=== PATIENT | male | born 1945 | race African-American/Black ===

== ENCOUNTER 2019-02-12 16:05 | Inpatient (IN) | payer MEDICARE, MEDICAID ==
[~2019-02-12] VITALS: Ht 180.3 cm; Wt 90.8 kg
[2019-02-12] MEDS ORDERED: SODIUM CHLORIDE 0.9% 500 ML IV ONE (16:30)
[2019-02-12 16:52] LABS: BASOPHILS % 0.6 % (0.0-2.0); EOSINOPHILS % 1.3 % (0.0-5.0); HEMATOCRIT. 40.1 % (42.0-52.0); HEMOGLOBIN. 13.3 g/dL (14.0-18.0); LYMPHOCYTES % 18.8 % (20.0-50.0); MEAN CORPUSCULAR HEMOGLOBIN 27.8 pg (28.0-32.0); MEAN CORPUSCULAR VOLUME 83.7 fL (80.0-94.0); MEAN PLATELET VOLUME 7.9 fl (7.4-10.4); MONOCYTES % 4.5 % (2.0-8.0); NEUTROPHILS % 74.8 % (40.0-76.0); PLATELET 202 x1000/uL (130-400); RED BLOOD CELL COUNT 4.79 mill/uL (4.7-6.1); RED CELL DISTRIBUTION WIDTH 13.8 % (11.6-14.6)
[2019-02-12 16:58] LABS: CHLORIDE 108 mEq/L (98-107)
[2019-02-12 16:59] LABS: BG BASE EXCESS 1.2 mmol/L (-2.0-2.0); BG CARBOXYHEMOGLOBIN 0.3 % (0.5-1.5); BG DEOXYHEMOGLOBIN 4.1 % (0.0-5.0); BG HCO3 ACT 25.7 mmol/L (22.0-26.0); BG METHEMOGLOBIN 0.4 % (0.0-1.5); BG OXYGEN SATURATION 95.9 % (92.0-98.5); BG OXYHEMOGLOBIN 95.2 % (94.0-97.0); BG PCO2 40.4 mmHg (35.0-45.0); BG PH 7.422 (7.350-7.450); BG PO2 81.2 mmHg (75.0-100.0); BG SAMPLE SITE RIGHT RADIAL; BG TOTAL HEMOGLOBIN 14.1 g/dL (12.0-18.0); BG VENT MODE ROOM AIR
[2019-02-12 17:03] LABS: ETHANOL BLOOD < 10 mg/dL
[2019-02-12 19:17] LABS: CLARITY URINE CLEAR (CLEAR); COLOR URINE YELLOW (YELLOW); KETONES URINE TRACE (NEGATIVE); LEUKOCYTE ESTERASE URINE NEGATIVE (NEGATIVE); NITRITE URINE NEGATIVE (NEGATIVE); OCCULT BLOOD URINE NEGATIVE (NEGATIVE); PH URINE 5.5 (4.5-8.0); PROTEIN URINE NEGATIVE (NEGATIVE); SPECIFIC GRAVITY URINE 1.024 (1.005-1.030); UROBILINOGEN URINE 0.2 E.U./dL (0.2-1.0)
[2019-02-12 19:26] LABS: *AMPHETAMINES SCREEN URINE NEGATIVE (NEGATIVE); CANNABINOID URINE SCREEN NEGATIVE (NEGATIVE); METHADONE URINE SCREEN NEGATIVE (NEGATIVE); OPIATES URINE SCREEN NEGATIVE (NEGATIVE); PHENCYCLIDINE URINE SCREEN NEGATIVE (NEGATIVE)
[2019-02-12 19:27] LABS: *BARBITURATES SCREEN URINE NEGATIVE (NEGATIVE); *BENZODIAZEPINES SCREEN URINE NEGATIVE (NEGATIVE); *COCAINE SCREEN URINE NEGATIVE (NEGATIVE)
[2019-02-12] MEDS ORDERED: HYDROMORPHONE HCL/PF 2MG/ML CPJ IV PRN (21:30)
[2019-02-12] MEDS ORDERED: ONDANSETRON HCL 4MG/2ML INJ IV PRN (21:30)
[2019-02-12] MEDS ORDERED: ACETAMINOPHEN 325MG TABLET PO PRN (21:30)
[2019-02-12] MEDS ORDERED: HYDROCODONE/ACETAMINOPHEN 10/325MG TABLET PO PRN (21:30)
[2019-02-12] MEDS ORDERED: DEXTROSE 50% WATER 50ML SYRINGE IV PRN ×2 (21:30→22:45)
[2019-02-12] MEDS ORDERED: GUAIFENESIN 200MG/10ML SUGAR FREE UDC PO PRN (21:30)
[2019-02-12] MEDS ORDERED: DOCUSATE SODIUM 100MG CAPSULE PO PRN (21:30)
[2019-02-12] MEDS ORDERED: CLONIDINE 0.1MG TABLET PO PRN (21:30)
[2019-02-12] MEDS ORDERED: LORAZEPAM 2MG/ML CPJ IV PRN (21:30)
[2019-02-12] MEDS ORDERED: HYDRALAZINE 20MG/ML VIAL IV PRN (21:30)
[2019-02-12] MEDS ORDERED: NA PHOS,M-B/NA PHOS,DI-BA ENEMA 118ML PR PRN (21:30)
[2019-02-12] MEDS ORDERED: IPRATROPIUM/ALBUTEROL 0.5-3(2.5)MG/3ML NEB INH PRN (21:30)
[2019-02-12] MEDS ORDERED: MAGNESIUM/ALUMINUM HYDROXIDE/SIMETHICONE 30ML UDC PO PRN (21:30)
[2019-02-12] MEDS ORDERED: DIPHENHYDRAMINE 50MG/ML VIAL IV PRN (21:30)
[2019-02-12 22:00] VITALS: BP 136/84
[2019-02-12] MEDS ORDERED: SODIUM CHLORIDE 0.45% 1,000 ML IV SCH (23:00)
[2019-02-12 23:55] VITALS: BP 136/84
[2019-02-13] VITALS: BP 130/65
[2019-02-13 04:00] VITALS: BP 128/69
[2019-02-13] MEDS ORDERED: AMLO5TAB4 MT (05:21)
[2019-02-13] MEDS ORDERED: METO25TA6 PO (05:21)
[2019-02-13] MEDS ORDERED: LISI-604 MT (05:21)
[2019-02-13] MEDS ORDERED: ACET-2708 MT (05:21)
[2019-02-13] MEDS ORDERED: LORA-250 PO (05:21)
[2019-02-13] MEDS ORDERED: RANI150T7 MT (05:21)
[2019-02-13] MEDS ORDERED: OLAN10TA19 PO (05:21)
[2019-02-13] MEDS ORDERED: ACET-2178 MT (05:21)
[2019-02-13] MEDS ORDERED: SODIUM CHLORIDE 0.9% INJ 3ML FLUSH IVF SCH (06:00)
[2019-02-13] MEDS: INSULIN LISPRO 100 UNITS/ML SUBCUT SCH ×2 (06:56→12:40)
[2019-02-13] MEDS: BLOOD SUGAR DIAGNOSTIC STRIP TEST SCH ×2 (06:56→12:10)
[2019-02-13] MEDS ORDERED: BLOOD SUGAR DIAGNOSTIC STRIP TEST SCH (07:10)
[2019-02-13] MEDS ORDERED: INSULIN LISPRO 100 UNITS/ML SUBCUT SCH (07:40)
[2019-02-13 07:54] LABS: CHLORIDE 108 mEq/L (98-107)
[2019-02-13 07:56] LABS: BASOPHILS % 0.6 % (0.0-2.0); EOSINOPHILS % 2.3 % (0.0-5.0); HEMATOCRIT. 39.4 % (42.0-52.0); HEMOGLOBIN. 13.1 g/dL (14.0-18.0); LYMPHOCYTES % 42.8 % (20.0-50.0); MEAN CORPUSCULAR HEMOGLOBIN 27.9 pg (28.0-32.0); MEAN CORPUSCULAR VOLUME 83.6 fL (80.0-94.0); MEAN PLATELET VOLUME 8.1 fl (7.4-10.4); MONOCYTES % 7.3 % (2.0-8.0); PLATELET 195 x1000/uL (130-400); RED BLOOD CELL COUNT 4.71 mill/uL (4.7-6.1); RED CELL DISTRIBUTION WIDTH 13.6 % (11.6-14.6)
[2019-02-13 08:00] VITALS: BP 154/95
[2019-02-13 08:06] LABS: CREATINE KINASE 58 IU/L (39-308)
[2019-02-13 08:07] LABS: CREATINE KINASE MB FRACTION < 1.0 ng/mL (0.5-3.6)
[2019-02-13] MEDS ORDERED: ASPIRIN 81MG EC TABLET PO SCH (09:00)
[2019-02-13] MEDS ORDERED: ENOXAPARIN 30MG/0.3ML SYR SUBCUT SCH (09:00)
[2019-02-13 12:00] VITALS: BP 134/89
[2019-02-13 16:00] VITALS: BP 119/74
[2019-02-13 17:37] VITALS: BP 118/65
[2019-02-14] MEDS ORDERED: ENOXAPARIN 40MG/0.4ML SYR SUBCUT SCH (09:00)
== END 2019-02-13 18:40 | DRG 640 ==
LOC: ER 16:05 → 8WST 19:01 → EDBEDREQ 19:12 → EDBEDREQSVC 19:12 → EDBEDREQTM 19:12 → ENRESERV 20:26
PROVIDERS: ADMIT Internal Medicine; ATTEND Internal Medicine
DX: E86.0 Dehydration (principal); G93.41 Metabolic encephalopathy; E11.9 Type 2 diabetes mellitus without complications; I10 Essential (primary) hypertension; F03.90 Unspecified dementia, unspecified severity, without behavioral disturbance, psychotic disturbance, mood disturbance, and anxiety; Z86.73 Personal history of transient ischemic attack (TIA), and cerebral infarction without residual deficits; Z79.899 Other long term (current) drug therapy
CPT/HCPCS: 36415; 36600; 71045; 80305; 80307; 80320; 80329; 81003; 82140; 82375; 82550; 82553; 82805; 82962; 83880; 84443; 84484; 93005; 99285; J1650; J7040; G0480

== ENCOUNTER 2019-09-02 15:05 | Emergency (ER) | payer MEDICARE, MEDICAID ==
[~2019-09-02] VITALS: Ht 175.3 cm; Wt 90.0 kg
[~2019-09-02 15:05] MED LIST: ACET-2708 MT; AMLO5TAB4 MT; LISI-604 MT; LORA-250 PO; METO25TA6 PO; OLAN10TA19 PO; RANI150T7 MT; TOPUD MT
[2019-09-02] MEDS ORDERED: TETANUS, DIPHTHERIA, PERTUSSIS VAC/PF 0.5ML (>7YR OLD) IM ONE (17:30)
[2019-09-02 19:50] VITALS: BP 169/91
== END 2019-09-02 21:54 | disposition home or self-care (01) ==
LOC: ER 15:05
DX: S01.111A Laceration without foreign body of right eyelid and periocular area, initial encounter (principal); K21.9 Gastro-esophageal reflux disease without esophagitis; I10 Essential (primary) hypertension; F20.9 Schizophrenia, unspecified; F41.9 Anxiety disorder, unspecified; F03.90 Unspecified dementia, unspecified severity, without behavioral disturbance, psychotic disturbance, mood disturbance, and anxiety; W05.0XXA Fall from non-moving wheelchair, initial encounter; Y93.89 Activity, other specified; Y92.89 Other specified places as the place of occurrence of the external cause
CPT/HCPCS: 12013; 72170; 90471; 90715; 99285

== ENCOUNTER 2020-07-19 14:56 | Inpatient (IN) | payer MEDICARE, MEDICAID ==
[~2020-07-19] VITALS: Ht 180.3 cm; Wt 90.8 kg
[2020-07-19] MEDS ORDERED: ADENOSINE 3 MG/ML 2ML VIAL IV ONE ×2 (16:30)
[2020-07-19] MEDS ORDERED: DILTIAZEM HCL 5MG/ML 5ML VIAL IV ONE (16:45)
[2020-07-19 16:50] LABS: BASOPHILS % 0.4 % (0.0-2.0); HEMATOCRIT. 40.9 % (42.0-52.0); HEMOGLOBIN. 12.7 g/dL (14.0-18.0); LYMPHOCYTES % 7.8 % (20.0-50.0); MEAN CORPUSCULAR HEMOGLOBIN 26.2 pg (28.0-32.0); MEAN CORPUSCULAR VOLUME 84.5 fL (80.0-94.0); MONOCYTES % 4.5 % (2.0-8.0); NEUTROPHILS % 87.3 % (40.0-76.0); PLATELET 270 x1000/uL (130-400); RED BLOOD CELL COUNT 4.84 mill/uL (4.7-6.1); RED CELL DISTRIBUTION WIDTH 14.5 % (11.6-14.6)
[2020-07-19 16:57] LABS: CHLORIDE 129 mEq/L (98-107)
[2020-07-19 17:00] LABS: INR 1.1; PROTHROMBIN TIME 11.6 sec (9.6-11.0)
[2020-07-19 17:09] LABS: CREATINE KINASE 305 IU/L (39-308)
[2020-07-19 17:11] LABS: BG BASE EXCESS -8.3 mmol/L (-2.0-2.0); BG CARBOXYHEMOGLOBIN 0.3 % (0.5-1.5); BG DEOXYHEMOGLOBIN 0.6 % (0.0-5.0); BG FRACTION INSPIRED OXYGEN 100; BG HCO3 ACT 17.1 mmol/L (22.0-26.0); BG METHEMOGLOBIN 0.6 % (0.0-1.5); BG OXYGEN SATURATION 99.4 % (92.0-98.5); BG OXYHEMOGLOBIN 98.5 % (94.0-97.0); BG PCO2 34.6 mmHg (35.0-45.0); BG PH 7.311 (7.350-7.450); BG PO2 355.1 mmHg (75.0-100.0); BG SAMPLE SITE RIGHT RADIAL; BG TOTAL HEMOGLOBIN 12.6 g/dL (12.0-18.0); BG TOTAL RESPIRATORY RATE 19 b/min; BG VENT MODE MASK - BIPAP
[2020-07-19] MEDS ORDERED: SODIUM CHLORIDE 0.9% 500 ML IV ONE (17:30)
[2020-07-19] MEDS: DEXT 5%/0.2% NACL 1,000 ML IV SCH (20:30)
[2020-07-19 22:58] LABS: CLARITY URINE CLOUDY (CLEAR); COLOR URINE DARK YELLOW (YELLOW); KETONES URINE NEGATIVE (NEGATIVE); LEUKOCYTE ESTERASE URINE TRACE (NEGATIVE); NITRITE URINE NEGATIVE (NEGATIVE); OCCULT BLOOD URINE TRACE (NEGATIVE); PROTEIN URINE 1+ (NEGATIVE); SPECIFIC GRAVITY URINE 1.019 (1.005-1.030)
[2020-07-19 23:26] LABS: *AMPHETAMINES SCREEN URINE NEGATIVE (NEGATIVE); *BARBITURATES SCREEN URINE NEGATIVE (NEGATIVE); *BENZODIAZEPINES SCREEN URINE NEGATIVE (NEGATIVE); *COCAINE SCREEN URINE NEGATIVE (NEGATIVE)
[2020-07-19 23:27] LABS: CANNABINOID URINE SCREEN NEGATIVE (NEGATIVE); METHADONE URINE SCREEN NEGATIVE (NEGATIVE); OPIATES URINE SCREEN NEGATIVE (NEGATIVE); PHENCYCLIDINE URINE SCREEN NEGATIVE (NEGATIVE)
[2020-07-20 05:24] LABS: HEMATOCRIT. 38.8 % (42.0-52.0); HEMOGLOBIN. 12.1 g/dL (14.0-18.0); MEAN CORPUSCULAR HEMOGLOBIN 26.3 pg (28.0-32.0); MEAN CORPUSCULAR VOLUME 84.6 fL (80.0-94.0); PLATELET 212 x1000/uL (130-400); RED BLOOD CELL COUNT 4.59 mill/uL (4.7-6.1); RED CELL DISTRIBUTION WIDTH 14.7 % (11.6-14.6)
[2020-07-20] MEDS: DEXT 5%/0.2% NACL 1,000 ML IV SCH ×3 (05:40→21:29)
[2020-07-20] MEDS ORDERED: DIPHENHYDRAMINE 50MG/ML VIAL IV PRN (08:45)
[2020-07-20] MEDS ORDERED: CEFTRIAXONE 1 G PREMIX 50 ML IV SCH (08:45)
[2020-07-20] MEDS ORDERED: CLONIDINE 0.1MG TABLET PO PRN (08:45)
[2020-07-20] MEDS ORDERED: ACETAMINOPHEN 325MG TABLET PO PRN (08:45)
[2020-07-20] MEDS ORDERED: ENOXAPARIN 40MG/0.4ML SYR SUBCUT SCH (08:45)
[2020-07-20 08:46] LABS: PLATELET ESTIMATE NORMAL
[2020-07-20] MEDS: DEXAMETHASONE 10 MG/ML VIAL IV SCH (09:00)
[2020-07-20] MEDS ORDERED: ENOXAPARIN 30MG/0.3ML SYR SUBCUT SCH (09:15)
[2020-07-20] MEDS ORDERED: SODIUM POLYSTYRENE SULFONATE 15 G/60 ML BOT PO SCH (10:00)
[2020-07-20] MEDS: AZITHROMYCIN 500 MG in DEXT 5% WATER 250 ML IV SCH (10:00)
[2020-07-20] MEDS: ONDANSETRON HCL 4MG/2ML INJ IV PRN (10:40)
[2020-07-20] MEDS ORDERED: NOREPINEPHRINE 32 MG in DEXT 5% WATER 218 ML IV PRN (10:45)
[2020-07-20] MEDS ORDERED: DILTIAZEM HCL 5MG/ML 5ML VIAL IV SCH (11:00)
[2020-07-20] MEDS ORDERED: SODIUM CHLORIDE 0.45% 500 ML IV SCH (11:15)
[2020-07-20 13:23] LABS: BG BASE EXCESS -5.8 mmol/L (-2.0-2.0); BG CARBOXYHEMOGLOBIN 0.3 % (0.5-1.5); BG DEOXYHEMOGLOBIN 0.6 % (0.0-5.0); BG FRACTION INSPIRED OXYGEN 100; BG HCO3 ACT 18.4 mmol/L (22.0-26.0); BG METHEMOGLOBIN 0.5 % (0.0-1.5); BG OXYGEN SATURATION 99.4 % (92.0-98.5); BG OXYHEMOGLOBIN 98.6 % (94.0-97.0); BG PCO2 32.2 mmHg (35.0-45.0); BG PH 7.376 (7.350-7.450); BG PO2 338.2 mmHg (75.0-100.0); BG SAMPLE SITE RIGHT RADIAL; BG TOTAL HEMOGLOBIN 11.5 g/dL (12.0-18.0); BG VENT MODE MASK - BIPAP
[2020-07-20] MEDS ORDERED: DILTIAZEM HCL 30MG TABLET PO SCH (14:00)
[2020-07-20] MEDS: PANTOPRAZOLE SODIUM 40 MG/VIAL IV SCH (14:43)
[2020-07-20] MEDS: SUCRALFATE 1 G/10 ML UDC PO SCH ×2 (16:30→21:29)
[2020-07-20] MEDS ORDERED: NOREPINEPHRINE 32 MG in SODIUM CHLORIDE 0.9% 218 ML IV PRN (18:00)
[2020-07-20 18:11] LABS: CREATINE KINASE MB FRACTION 1.3 ng/mL (0.5-3.6)
[2020-07-20] MEDS: PIPERACILLIN/TAZOBACTAM 2.25 G in DEXTROSE 5% WATER 50 ML IV SCH (21:29)
[2020-07-20 23:42] LABS: CREATINE KINASE MB FRACTION 1.2 ng/mL (0.5-3.6); T4 FREE 3.98 ng/dL (0.76-1.46)
[2020-07-20 23:53] LABS: FOLIC ACID (FOLATE) SERUM 7.9 ng/mL (>5.38)
[2020-07-21] MEDS: PIPERACILLIN/TAZOBACTAM 2.25 G in DEXTROSE 5% WATER 50 ML IV SCH ×4 (06:00→18:00)
[2020-07-21] MEDS: SUCRALFATE 1 G/10 ML UDC PO SCH ×3 (06:30→16:30)
[2020-07-21 06:44] LABS: HEMATOCRIT. 37.2 % (42.0-52.0); HEMOGLOBIN. 11.5 g/dL (14.0-18.0); MEAN PLATELET VOLUME 9.2 fl (7.4-10.4); PLATELET 209 x1000/uL (130-400); RED BLOOD CELL COUNT 4.42 mill/uL (4.7-6.1); RED CELL DISTRIBUTION WIDTH 14.7 % (11.6-14.6)
[2020-07-21 06:44] LABS: CHLORIDE 133 mEq/L (98-107)
[2020-07-21 06:52] LABS: HDL CHOLESTEROL 23 mg/dL (40-59)
[2020-07-21 06:53] LABS: LDL CHOLESTEROL 90 mg/dL (5-100)
[2020-07-21 07:23] LABS: HEPATITIS B SURFACE ANTIGEN NEGATIVE
[2020-07-21 07:52] LABS: HEPATITIS A AB IGM NEGATIVE (NEGATIVE)
[2020-07-21 08:40] LABS: PLATELET ESTIMATE NORMAL
[2020-07-21] MEDS: AZITHROMYCIN 500 MG in DEXT 5% WATER 250 ML IV SCH (09:26)
[2020-07-21] MEDS: DEXTROSE 5% WATER 1,000 ML IV SCH ×2 (09:32→17:44)
[2020-07-21] MEDS: PANTOPRAZOLE SODIUM 40 MG/VIAL IV SCH (09:34)
[2020-07-21] MEDS: DEXAMETHASONE 10 MG/ML VIAL IV SCH (09:40)
[2020-07-21] MEDS ORDERED: SODIUM POLYSTYRENE SULFONATE 15 G/60 ML BOT PO NR (09:45)
[2020-07-21] MEDS ORDERED: CEFTRIAXONE 1,000 MG in DEXTROSE 5% WATER 50 ML IV SCH (10:00)
[2020-07-21] MEDS: ATENOLOL 25MG TABLET PO SCH (12:15)
[2020-07-21] MEDS ORDERED: ENOXAPARIN 100MG/ML SYR SUBCUT SCH (12:30)
[2020-07-21] MEDS: ENOXAPARIN 100MG/ML SYR SUBCUT SCH (22:48)
[2020-07-22] MEDS: DEXTROSE 5% WATER 1,000 ML IV SCH ×3 (01:22→17:18)
[2020-07-22 04:54] LABS: HEMATOCRIT. 32.1 % (42.0-52.0); HEMOGLOBIN. 10.3 g/dL (14.0-18.0); MEAN CORPUSCULAR HEMOGLOBIN 26.7 pg (28.0-32.0); MEAN CORPUSCULAR VOLUME 82.9 fL (80.0-94.0); MEAN PLATELET VOLUME 9.2 fl (7.4-10.4); PLATELET 189 x1000/uL (130-400); RED BLOOD CELL COUNT 3.87 mill/uL (4.7-6.1); RED CELL DISTRIBUTION WIDTH 14.2 % (11.6-14.6)
[2020-07-22 05:01] LABS: CHLORIDE 126 mEq/L (98-107)
[2020-07-22 05:06] LABS: PHOSPHORUS 2.9 mg/dL (2.5-4.9)
[2020-07-22] MEDS: METOPROLOL TARTRATE 5MG/5ML VIAL IV SCH ×3 (06:00→17:29)
[2020-07-22] MEDS: PIPERACILLIN/TAZOBACTAM 2.25 G in DEXTROSE 5% WATER 50 ML IV SCH ×5 (06:00→18:03)
[2020-07-22] MEDS: ATENOLOL 25MG TABLET PO SCH (08:10)
[2020-07-22] MEDS: ENOXAPARIN 100MG/ML SYR SUBCUT SCH (09:00)
[2020-07-22] MEDS: DEXAMETHASONE 10 MG/ML VIAL IV SCH (09:23)
[2020-07-22] MEDS: PANTOPRAZOLE SODIUM 40 MG/VIAL IV SCH (09:23)
[2020-07-22] MEDS: AZITHROMYCIN 500 MG in DEXT 5% WATER 250 ML IV SCH (09:23)
[2020-07-22 10:40] LABS: BG BASE EXCESS -4.9 mmol/L (-2.0-2.0); BG CARBOXYHEMOGLOBIN 0.3 % (0.5-1.5); BG DEOXYHEMOGLOBIN 1.7 % (0.0-5.0); BG FRACTION INSPIRED OXYGEN 36; BG HCO3 ACT 20.3 mmol/L (22.0-26.0); BG METHEMOGLOBIN 0.3 % (0.0-1.5); BG OXYGEN SATURATION 98.3 % (92.0-98.5); BG OXYHEMOGLOBIN 97.7 % (94.0-97.0); BG PCO2 37.9 mmHg (35.0-45.0); BG PH 7.346 (7.350-7.450); BG PO2 118.9 mmHg (75.0-100.0); BG SAMPLE SITE RIGHT RADIAL; BG TOTAL HEMOGLOBIN 10.6 g/dL (12.0-18.0); BG VENT MODE NASAL CANNULA
[2020-07-22] MEDS ORDERED: SORBITOL 70% SOLN 30ML PO NR (16:00)
[2020-07-22] MEDS ORDERED: AMIODARONE HCL 50MG/ML 3ML VIAL IV ONE (17:15)
[2020-07-22] MEDS ORDERED: AMIODARONE HCL 150 MG in DEXT 5% WATER 100 ML IV NR (18:00)
[2020-07-22] MEDS ORDERED: AMIODARONE HCL 900 MG in DEXT 5% WATER 482 ML IV SCH (18:00)
[2020-07-22] MEDS ORDERED: PHENYLEPHRINE 100 MG in DEXT 5% WATER 240 ML IV PRN (18:00)
[2020-07-22] MEDS: VASOPRESSIN 20 UNIT in SODIUM CHLORIDE 0.9% 99 ML IV PRN (18:21)
[2020-07-22] MEDS: SUCRALFATE 1 G/10 ML UDC PO SCH (23:00)
[2020-07-23] MEDS: ENOXAPARIN 100MG/ML SYR SUBCUT SCH ×3 (01:54→20:49)
[2020-07-23] MEDS: METOPROLOL TARTRATE 5MG/5ML VIAL IV SCH ×4 (01:55→17:04)
[2020-07-23] MEDS: PIPERACILLIN/TAZOBACTAM 2.25 G in DEXTROSE 5% WATER 50 ML IV SCH ×4 (01:55→17:53)
[2020-07-23] MEDS: DEXTROSE 5% WATER 1,000 ML IV SCH ×2 (02:11→16:42)
[2020-07-23] MEDS: ONDANSETRON HCL 4MG/2ML INJ IV PRN (04:31)
[2020-07-23] MEDS: VASOPRESSIN 20 UNIT in SODIUM CHLORIDE 0.9% 99 ML IV PRN (04:50)
[2020-07-23] MEDS: SUCRALFATE 1 G/10 ML UDC PO SCH ×4 (05:54→20:49)
[2020-07-23 06:20] LABS: CHLORIDE 126 mEq/L (98-107)
[2020-07-23 06:38] LABS: BASOPHILS % 0.2 % (0.0-2.0); HEMATOCRIT. 34.1 % (42.0-52.0); HEMOGLOBIN. 10.7 g/dL (14.0-18.0); LYMPHOCYTES % 8.6 % (20.0-50.0); MEAN CORPUSCULAR HEMOGLOBIN 26.7 pg (28.0-32.0); MEAN CORPUSCULAR VOLUME 85.3 fL (80.0-94.0); MEAN PLATELET VOLUME 8.9 fl (7.4-10.4); MONOCYTES % 6.9 % (2.0-8.0); NEUTROPHILS % 84.3 % (40.0-76.0); PLATELET 150 x1000/uL (130-400); RED BLOOD CELL COUNT 3.99 mill/uL (4.7-6.1); RED CELL DISTRIBUTION WIDTH 14.4 % (11.6-14.6)
[2020-07-23] MEDS ORDERED: SODIUM POLYSTYRENE SULFONATE 15 G/60 ML BOT PO NR (09:00)
[2020-07-23] MEDS: ATENOLOL 25MG TABLET PO SCH (09:58)
[2020-07-23] MEDS: PANTOPRAZOLE SODIUM 40 MG/VIAL IV SCH (09:58)
[2020-07-23] MEDS: DEXAMETHASONE 10 MG/ML VIAL IV SCH (09:58)
[2020-07-23 14:24] LABS: NUCLEATED RED BLOOD CELLS 1 /100 WBC; PLATELET ESTIMATE NORMAL
[2020-07-24] MEDS: METOCLOPRAMIDE HCL 10MG/2ML VIAL IV SCH ×4 (01:54→18:16)
[2020-07-24 05:27] LABS: BASOPHILS % 0.4 % (0.0-2.0); EOSINOPHILS % 0.2 % (0.0-5.0); HEMATOCRIT. 32.6 % (42.0-52.0); HEMOGLOBIN. 10.8 g/dL (14.0-18.0); LYMPHOCYTES % 11.1 % (20.0-50.0); MEAN CORPUSCULAR HEMOGLOBIN 27.1 pg (28.0-32.0); MEAN CORPUSCULAR VOLUME 81.6 fL (80.0-94.0); MEAN PLATELET VOLUME 9.2 fl (7.4-10.4); NEUTROPHILS % 83.3 % (40.0-76.0); PLATELET 153 x1000/uL (130-400); RED CELL DISTRIBUTION WIDTH 13.4 % (11.6-14.6)
[2020-07-24 06:09] LABS: CHLORIDE 126 mEq/L (98-107)
[2020-07-24 06:23] LABS: PHOSPHORUS 2.7 mg/dL (2.5-4.9)
[2020-07-24] MEDS: METOPROLOL TARTRATE 5MG/5ML VIAL IV SCH ×4 (07:33→18:16)
[2020-07-24] MEDS: DEXTROSE 5% WATER 1,000 ML IV SCH ×4 (08:00→16:58)
[2020-07-24] MEDS: PIPERACILLIN/TAZOBACTAM 2.25 G in DEXTROSE 5% WATER 50 ML IV SCH ×4 (08:01→11:46)
[2020-07-24] MEDS: SUCRALFATE 1 G/10 ML UDC PO SCH ×4 (08:25→21:43)
[2020-07-24] MEDS: ENOXAPARIN 100MG/ML SYR SUBCUT SCH ×2 (08:26→22:34)
[2020-07-24] MEDS: DEXAMETHASONE 10 MG/ML VIAL IV SCH (08:26)
[2020-07-24] MEDS: METHIMAZOLE 5MG TABLET PO SCH (08:26)
[2020-07-24] MEDS: PANTOPRAZOLE SODIUM 40 MG/VIAL IV SCH (08:26)
[2020-07-24] MEDS: ATENOLOL 25MG TABLET PO SCH ×2 (08:26→21:43)
[2020-07-24 18:50] VITALS: BP 120/75
[2020-07-24 20:00] VITALS: BP 132/86
[2020-07-25] VITALS: BP 132/87
[2020-07-25] MEDS: DEXTROSE 5% WATER 1,000 ML IV SCH ×3 (00:42→22:24)
[2020-07-25] MEDS: METOCLOPRAMIDE HCL 10MG/2ML VIAL IV SCH ×3 (00:49→13:11)
[2020-07-25] MEDS: PIPERACILLIN/TAZOBACTAM 3.375 G in DEXT 5% WATER 100 ML IV SCH ×4 (00:49→18:18)
[2020-07-25] MEDS: METOPROLOL TARTRATE 5MG/5ML VIAL IV SCH ×3 (00:50→18:00)
[2020-07-25 04:00] VITALS: BP 130/86
[2020-07-25] MEDS: SUCRALFATE 1 G/10 ML UDC PO SCH ×4 (05:48→22:23)
[2020-07-25 06:39] LABS: BASOPHILS % 0.1 % (0.0-2.0); EOSINOPHILS % 0.3 % (0.0-5.0); HEMATOCRIT. 32.7 % (42.0-52.0); HEMOGLOBIN. 10.7 g/dL (14.0-18.0); LYMPHOCYTES % 16.4 % (20.0-50.0); MEAN CORPUSCULAR HEMOGLOBIN 26.5 pg (28.0-32.0); MEAN CORPUSCULAR VOLUME 81.3 fL (80.0-94.0); MEAN PLATELET VOLUME 9.3 fl (7.4-10.4); MONOCYTES % 5.7 % (2.0-8.0); NEUTROPHILS % 77.5 % (40.0-76.0); PLATELET 161 x1000/uL (130-400); RED BLOOD CELL COUNT 4.02 mill/uL (4.7-6.1); RED CELL DISTRIBUTION WIDTH 13.7 % (11.6-14.6)
[2020-07-25 06:56] LABS: CHLORIDE 126 mEq/L (98-107)
[2020-07-25 08:00] VITALS: BP 129/99
[2020-07-25] MEDS: ENOXAPARIN 100MG/ML SYR SUBCUT SCH ×2 (10:07→22:40)
[2020-07-25] MEDS: METHIMAZOLE 5MG TABLET PO SCH (10:07)
[2020-07-25] MEDS: DEXAMETHASONE 10 MG/ML VIAL IV SCH (10:08)
[2020-07-25] MEDS: ATENOLOL 25MG TABLET PO SCH ×2 (10:08→22:41)
[2020-07-25] MEDS: PANTOPRAZOLE SODIUM 40 MG/VIAL IV SCH (10:08)
[2020-07-25] MEDS ORDERED: POTASSIUM CHLORIDE 20MEQ TABLET SR PO NR (10:09)
[2020-07-25 16:00] VITALS: BP 119/83
[2020-07-25 20:00] VITALS: BP 128/98
[2020-07-26] VITALS: BP 122/68
[2020-07-26] MEDS: PIPERACILLIN/TAZOBACTAM 3.375 G in DEXT 5% WATER 100 ML IV SCH ×5 (00:09→23:07)
[2020-07-26] MEDS: METOPROLOL TARTRATE 5MG/5ML VIAL IV SCH ×5 (00:50→23:06)
[2020-07-26 04:00] VITALS: BP 108/65
[2020-07-26] MEDS ORDERED: DEXTROSE 50% WATER 50ML SYRINGE IV PRN (04:15)
[2020-07-26] MEDS: BLOOD SUGAR DIAGNOSTIC STRIP TEST SCH ×4 (06:23→21:00)
[2020-07-26] MEDS: INSULIN LISPRO 100 UNITS/ML SUBCUT SCH ×4 (06:24→21:00)
[2020-07-26] MEDS: SUCRALFATE 1 G/10 ML UDC PO SCH ×4 (06:30→23:05)
[2020-07-26 07:34] LABS: BASOPHILS % 0.2 % (0.0-2.0); EOSINOPHILS % 2.5 % (0.0-5.0); HEMATOCRIT. 28.6 % (42.0-52.0); HEMOGLOBIN. 9.2 g/dL (14.0-18.0); LYMPHOCYTES % 16.4 % (20.0-50.0); MEAN CORPUSCULAR HEMOGLOBIN 26.1 pg (28.0-32.0); MEAN CORPUSCULAR VOLUME 81.1 fL (80.0-94.0); MEAN PLATELET VOLUME 9.4 fl (7.4-10.4); MONOCYTES % 5.2 % (2.0-8.0); NEUTROPHILS % 75.7 % (40.0-76.0); PLATELET 155 x1000/uL (130-400); RED BLOOD CELL COUNT 3.52 mill/uL (4.7-6.1); RED CELL DISTRIBUTION WIDTH 13.4 % (11.6-14.6)
[2020-07-26 07:48] LABS: CHLORIDE 125 mEq/L (98-107)
[2020-07-26 08:00] VITALS: BP 156/67
[2020-07-26] MEDS ORDERED: POTASSIUM CHLORIDE 20MEQ TABLET SR PO SCH (10:00)
[2020-07-26] MEDS: ENOXAPARIN 100MG/ML SYR SUBCUT SCH ×2 (10:04→23:06)
[2020-07-26] MEDS: PANTOPRAZOLE SODIUM 40 MG/VIAL IV SCH (10:04)
[2020-07-26] MEDS: METHIMAZOLE 5MG TABLET PO SCH (10:05)
[2020-07-26] MEDS: DEXAMETHASONE 10 MG/ML VIAL IV SCH (10:05)
[2020-07-26] MEDS: ATENOLOL 25MG TABLET PO SCH ×2 (10:05→23:07)
[2020-07-26] MEDS ORDERED: KCL 20MEQ/100ML PREMIX 100 ML IV SCH (11:00)
[2020-07-26 12:00] VITALS: BP 159/69
[2020-07-26] MEDS: DEXTROSE 5% WATER 1,000 ML IV SCH ×2 (14:10→23:08)
[2020-07-26 16:00] VITALS: BP 142/67
[2020-07-26 20:00] VITALS: BP 113/59
[2020-07-27] VITALS (7 sets, daily range): BP systolic 125–142; BP diastolic 56–74
[2020-07-27 00:36] LABS: CHLORIDE 125 mEq/L (98-107)
[2020-07-27] MEDS: SUCRALFATE 1 G/10 ML UDC PO SCH ×4 (04:13→22:01)
[2020-07-27 05:44] LABS: BASOPHILS % 0.2 % (0.0-2.0); EOSINOPHILS % 2.5 % (0.0-5.0); HEMATOCRIT. 28.5 % (42.0-52.0); HEMOGLOBIN. 9.1 g/dL (14.0-18.0); LYMPHOCYTES % 19.6 % (20.0-50.0); MEAN CORPUSCULAR HEMOGLOBIN 26.2 pg (28.0-32.0); MEAN CORPUSCULAR VOLUME 81.7 fL (80.0-94.0); MONOCYTES % 3.8 % (2.0-8.0); NEUTROPHILS % 73.9 % (40.0-76.0); PLATELET 188 x1000/uL (130-400); RED BLOOD CELL COUNT 3.48 mill/uL (4.7-6.1); RED CELL DISTRIBUTION WIDTH 13.4 % (11.6-14.6)
[2020-07-27] MEDS: BLOOD SUGAR DIAGNOSTIC STRIP TEST SCH ×4 (05:53→21:29)
[2020-07-27] MEDS: INSULIN LISPRO 100 UNITS/ML SUBCUT SCH ×4 (05:53→21:00)
[2020-07-27] MEDS: PIPERACILLIN/TAZOBACTAM 3.375 G in DEXT 5% WATER 100 ML IV SCH ×4 (05:53→23:13)
[2020-07-27 05:56] LABS: CHLORIDE 123 mEq/L (98-107)
[2020-07-27] MEDS: METOPROLOL TARTRATE 5MG/5ML VIAL IV SCH ×4 (05:57→23:31)
[2020-07-27 06:07] LABS: INR 1.1; PROTHROMBIN TIME 11.9 sec (9.6-11.0)
[2020-07-27] MEDS ORDERED: POTASSIUM CHLORIDE 20MEQ/PACKET PO SCH (08:45)
[2020-07-27] MEDS: DEXTROSE 5% WATER 1,000 ML IV SCH ×3 (10:56→21:34)
[2020-07-27] MEDS: DEXAMETHASONE 10 MG/ML VIAL IV SCH (10:57)
[2020-07-27] MEDS: METHIMAZOLE 5MG TABLET PO SCH (10:58)
[2020-07-27] MEDS: PANTOPRAZOLE SODIUM 40 MG/VIAL IV SCH (10:58)
[2020-07-27] MEDS: ATENOLOL 25MG TABLET PO SCH ×2 (10:59→22:00)
[2020-07-27] MEDS: ENOXAPARIN 100MG/ML SYR SUBCUT SCH ×2 (11:00→21:00)
[2020-07-28] VITALS: BP 134/68
[2020-07-28 04:00] VITALS: BP 159/66
[2020-07-28] MEDS: DEXTROSE 5% WATER 1,000 ML IV SCH ×3 (05:27→21:21)
[2020-07-28] MEDS: PIPERACILLIN/TAZOBACTAM 3.375 G in DEXT 5% WATER 100 ML IV SCH ×4 (05:27→23:46)
[2020-07-28] MEDS: METOPROLOL TARTRATE 5MG/5ML VIAL IV SCH ×4 (05:28→23:49)
[2020-07-28] MEDS: SUCRALFATE 1 G/10 ML UDC PO SCH ×4 (05:28→21:13)
[2020-07-28 05:43] LABS: CHLORIDE 120 mEq/L (98-107)
[2020-07-28] MEDS: BLOOD SUGAR DIAGNOSTIC STRIP TEST SCH ×4 (05:52→21:14)
[2020-07-28] MEDS: INSULIN LISPRO 100 UNITS/ML SUBCUT SCH ×4 (05:52→21:00)
[2020-07-28 08:00] VITALS: BP 102/67
[2020-07-28] MEDS: METHIMAZOLE 5MG TABLET PO SCH (09:00)
[2020-07-28] MEDS: ENOXAPARIN 100MG/ML SYR SUBCUT SCH ×2 (09:00→21:14)
[2020-07-28] MEDS: ATENOLOL 25MG TABLET PO SCH ×2 (09:00→21:13)
[2020-07-28 09:40] LABS: BASOPHILS % 0.2 % (0.0-2.0); EOSINOPHILS % 1.2 % (0.0-5.0); HEMATOCRIT. 24.6 % (42.0-52.0); HEMOGLOBIN. 8.2 g/dL (14.0-18.0); LYMPHOCYTES % 20.9 % (20.0-50.0); MEAN CORPUSCULAR HEMOGLOBIN 27.3 pg (28.0-32.0); MEAN CORPUSCULAR VOLUME 81.7 fL (80.0-94.0); MEAN PLATELET VOLUME 9.6 fl (7.4-10.4); MONOCYTES % 3.5 % (2.0-8.0); NEUTROPHILS % 74.2 % (40.0-76.0); PLATELET 175 x1000/uL (130-400); RED BLOOD CELL COUNT 3.02 mill/uL (4.7-6.1); RED CELL DISTRIBUTION WIDTH 13.1 % (11.6-14.6)
[2020-07-28] MEDS: DEXAMETHASONE 10 MG/ML VIAL IV SCH (09:52)
[2020-07-28] MEDS: PANTOPRAZOLE SODIUM 40 MG/VIAL IV SCH (09:52)
[2020-07-28 12:00] VITALS: BP 115/72
[2020-07-28 16:00] VITALS: BP 132/76
[2020-07-28] MEDS ORDERED: MIDAZOLAM HCL 5 MG/5 ML VIAL ONE (16:11)
[2020-07-28] MEDS ORDERED: MIDAZOLAM HCL 5 MG/5 ML VIAL IV PRN (16:11)
[2020-07-28] MEDS ORDERED: FENTANYL CITRATE/PF 50MCG/ML 2ML VIAL ONE (16:11)
[2020-07-28] MEDS ORDERED: LIDOCAINE HCL/PF 1% 10 MG/ML 5ML VIAL ONE (16:21)
[2020-07-28 22:09] VITALS: BP 162/68
[2020-07-29] VITALS: BP 133/64
[2020-07-29 04:17] VITALS: BP 178/58
[2020-07-29] MEDS: DEXTROSE 5% WATER 1,000 ML IV SCH ×2 (04:59→16:32)
[2020-07-29] MEDS: PIPERACILLIN/TAZOBACTAM 3.375 G in DEXT 5% WATER 100 ML IV SCH ×3 (05:00→18:26)
[2020-07-29] MEDS: METOPROLOL TARTRATE 5MG/5ML VIAL IV SCH ×3 (05:00→18:26)
[2020-07-29] MEDS: SUCRALFATE 1 G/10 ML UDC PO SCH ×3 (05:38→16:26)
[2020-07-29] MEDS: BLOOD SUGAR DIAGNOSTIC STRIP TEST SCH ×3 (06:18→16:45)
[2020-07-29] MEDS: INSULIN LISPRO 100 UNITS/ML SUBCUT SCH ×3 (06:18→17:15)
[2020-07-29 08:00] VITALS: BP 188/66
[2020-07-29 08:27] LABS: BASOPHILS % 0.1 % (0.0-2.0); EOSINOPHILS % 0.9 % (0.0-5.0); HEMATOCRIT. 21.8 % (42.0-52.0); HEMOGLOBIN. 7.1 g/dL (14.0-18.0); MEAN CORPUSCULAR HEMOGLOBIN 26.3 pg (28.0-32.0); MEAN CORPUSCULAR VOLUME 80.6 fL (80.0-94.0); MEAN PLATELET VOLUME 9.3 fl (7.4-10.4); PLATELET 191 x1000/uL (130-400); RED BLOOD CELL COUNT 2.71 mill/uL (4.7-6.1); RED CELL DISTRIBUTION WIDTH 12.7 % (11.6-14.6)
[2020-07-29 08:28] LABS: CHLORIDE 114 mEq/L (98-107)
[2020-07-29] MEDS: PANTOPRAZOLE SODIUM 40 MG/VIAL IV SCH (09:20)
[2020-07-29] MEDS: ENOXAPARIN 100MG/ML SYR SUBCUT SCH (09:25)
[2020-07-29] MEDS: METHIMAZOLE 5MG TABLET PO SCH (09:26)
[2020-07-29] MEDS: DEXAMETHASONE 10 MG/ML VIAL IV SCH (09:26)
[2020-07-29] MEDS: ATENOLOL 25MG TABLET PO SCH (09:26)
[2020-07-29 12:00] VITALS: BP 165/64
[2020-07-29] MEDS ORDERED: POTASSIUM CHLORIDE 20MEQ/PACKET PO NR (13:00)
[2020-07-29 16:00] VITALS: BP 156/54
== END 2020-07-29 20:00 | DRG 871 ==
LOC: ER 15:02 → MICUSO 20:58 → EDBEDREQ 21:00 → EDBEDREQSVC 21:00 → CANRESERV 07-22 09:07 → ENRESERV 07-22 09:07 → 5WST 07-24 17:52
PROVIDERS: ADMIT Internal Medicine; ATTEND Internal Medicine
PROC: 5A09457 Assistance with Respiratory Ventilation, 24-96 Consecutive Hours, Continuous Positive Airway Pressure (ICD-10-PCS; 2020-07-19)
PROC: 0DH68UZ Insertion of Feeding Device into Stomach, Via Natural or Artificial Opening Endoscopic (ICD-10-PCS; principal; 2020-07-28)
DX: A41.9 Sepsis, unspecified organism (principal); G92 Toxic encephalopathy; I21.A1 Myocardial infarction type 2; I63.519 Cerebral infarction due to unspecified occlusion or stenosis of unspecified middle cerebral artery; J69.0 Pneumonitis due to inhalation of food and vomit; J96.01 Acute respiratory failure with hypoxia; K57.91 Diverticulosis of intestine, part unspecified, without perforation or abscess with bleeding; R65.21 Severe sepsis with septic shock; E46 Unspecified protein-calorie malnutrition; E87.1 Hypo-osmolality and hyponatremia; E87.2 Acidosis; I47.1 Supraventricular tachycardia; I48.92 Unspecified atrial flutter; I82.403 Acute embolism and thrombosis of unspecified deep veins of lower extremity, bilateral; N17.9 Acute kidney failure, unspecified; K92.0 Hematemesis; E87.0 Hyperosmolality and hypernatremia; N39.0 Urinary tract infection, site not specified; I47.2 Ventricular tachycardia; R47.01 Aphasia; D35.01 Benign neoplasm of right adrenal gland; E05.90 Thyrotoxicosis, unspecified without thyrotoxic crisis or storm; E11.9 Type 2 diabetes mellitus without complications; E86.0 Dehydration; E87.5 Hyperkalemia; F03.90 Unspecified dementia, unspecified severity, without behavioral disturbance, psychotic disturbance, mood disturbance, and anxiety; I10 Essential (primary) hypertension; I48.91 Unspecified atrial fibrillation; K56.41 Fecal impaction; N20.0 Calculus of kidney; R74.01 Elevation of levels of liver transaminase levels; E03.9 Hypothyroidism, unspecified; E87.6 Hypokalemia; R13.12 Dysphagia, oropharyngeal phase; Z20.822 Contact with and (suspected) exposure to COVID-19; L85.3 Xerosis cutis; Z86.73 Personal history of transient ischemic attack (TIA), and cerebral infarction without residual deficits; Z68.27 Body mass index [BMI] 27.0-27.9, adult; I25.2 Old myocardial infarction; Z79.899 Other long term (current) drug therapy
CPT/HCPCS: 36415; 36600; 71045; 74018; 74176; 76705; 76770; 80048; 80053; 80061; 80076; 80305; 81003; 82140; 82375; 82550; 82553; 82607; 82728; 82746; 82805; 82962; 83036; 83605; 83615; 83735; 83880; 84100; 84132; 84145; 84439; 84443; 84481; 84484; 85025; 85379; 86140; 86141; 86705; 86709; 86803; 87340; 87426; 87635; 93005; 93308; 93923; 93970; 94660; 99291; C9113; J0153; J0282; J0456; J0696; J1100; J1650; J2250; J2405; J2543; J2765; J3010; J3480; J3490; J7040; J7050; J7060; J7070

== ENCOUNTER 2021-10-25 18:28 | Inpatient (IN) | payer MEDICARE, MEDICAID ==
[~2021-10-25] VITALS: Ht 177.8 cm; Wt 119.9 kg
[~2021-10-25 18:28] MED LIST changes: -LISI-604 MT; +LISI20TA31 MT; -OLAN10TA19 PO; +OLAN10TA72 PO
[2021-10-25] MEDS ORDERED: ONDANSETRON HCL 4MG/2ML INJ IV PRN (22:00)
[2021-10-25] MEDS ORDERED: IPRATROPIUM/ALBUTEROL 0.5-3(2.5)MG/3ML NEB HHN PRN (22:00)
[2021-10-25] MEDS ORDERED: HYDRALAZINE 20MG/ML VIAL IV PRN (22:00)
[2021-10-25] MEDS: DEXT 5%/LACTATED RINGERS 1,000 ML IV SCH (22:30)
[2021-10-25 23:03] LABS: BASOPHILS % 0.6 % (0.0-2.0); EOSINOPHILS % 3.5 % (0.0-5.0); HEMATOCRIT. 41.6 % (42.0-52.0); HEMOGLOBIN. 13.3 g/dL (14.0-18.0); LYMPHOCYTES % 36.2 % (20.0-50.0); MEAN CORPUSCULAR HEMOGLOBIN 26.9 pg (28.0-32.0); MEAN CORPUSCULAR VOLUME 84.3 fL (80.0-94.0); MEAN PLATELET VOLUME 7.5 fl (7.4-10.4); MONOCYTES % 6.5 % (2.0-8.0); NEUTROPHILS % 53.2 % (40.0-76.0); PLATELET 210 x1000/uL (130-400); RED BLOOD CELL COUNT 4.93 mill/uL (4.7-6.1); RED CELL DISTRIBUTION WIDTH 13.9 % (11.6-14.6)
[2021-10-25 23:10] LABS: CHLORIDE 108 mEq/L (98-107)
[2021-10-26 09:58] LABS: BASOPHILS % 0.6 % (0.0-2.0); EOSINOPHILS % 4.8 % (0.0-5.0); HEMATOCRIT. 39.5 % (42.0-52.0); HEMOGLOBIN. 12.9 g/dL (14.0-18.0); LYMPHOCYTES % 41.5 % (20.0-50.0); MEAN CORPUSCULAR HEMOGLOBIN 26.7 pg (28.0-32.0); MEAN PLATELET VOLUME 7.7 fl (7.4-10.4); MONOCYTES % 9.3 % (2.0-8.0); NEUTROPHILS % 43.8 % (40.0-76.0); PLATELET 199 x1000/uL (130-400); RED BLOOD CELL COUNT 4.82 mill/uL (4.7-6.1); RED CELL DISTRIBUTION WIDTH 13.4 % (11.6-14.6)
[2021-10-26 10:07] LABS: CHLORIDE 106 mEq/L (98-107)
[2021-10-26 11:45] VITALS: BP 158/89
[2021-10-26 12:24] VITALS: BP 158/89
[2021-10-26] MEDS: DEXT 5%/LACTATED RINGERS 1,000 ML IV SCH (13:43)
[2021-10-26] MEDS: PANTOPRAZOLE SODIUM 40 MG/VIAL IV SCH (13:43)
[2021-10-26 14:37] LABS: TOTAL IRON BINDING CAPACITY 304 ug/dL (250-450)
[2021-10-26 14:53] LABS: FOLIC ACID (FOLATE) SERUM 19.3 ng/mL (>5.38)
[2021-10-26 16:20] VITALS: BP 141/61
[2021-10-26] MEDS ORDERED: LORAZEPAM 2MG/ML CPJ IV PRN (17:00)
[2021-10-26 20:00] VITALS: BP 139/98
[2021-10-27] VITALS: BP 156/93
[2021-10-27] MEDS: PANTOPRAZOLE SODIUM 40 MG/VIAL IV SCH ×2 (01:00→13:31)
[2021-10-27] MEDS: DEXT 5%/LACTATED RINGERS 1,000 ML IV SCH ×2 (01:02→13:31)
[2021-10-27 04:00] VITALS: BP 150/88
[2021-10-27 07:08] LABS: CHLORIDE 106 mEq/L (98-107)
[2021-10-27 07:51] VITALS: BP 150/94
[2021-10-27 08:36] LABS: BASOPHILS % 0.5 % (0.0-2.0); EOSINOPHILS % 4.2 % (0.0-5.0); HEMATOCRIT. 45.3 % (42.0-52.0); HEMOGLOBIN. 14.4 g/dL (14.0-18.0); LYMPHOCYTES % 38.2 % (20.0-50.0); MEAN CORPUSCULAR VOLUME 84.9 fL (80.0-94.0); MEAN PLATELET VOLUME 7.7 fl (7.4-10.4); MONOCYTES % 8.5 % (2.0-8.0); NEUTROPHILS % 48.6 % (40.0-76.0); PLATELET 198 x1000/uL (130-400); RED BLOOD CELL COUNT 5.34 mill/uL (4.7-6.1); RED CELL DISTRIBUTION WIDTH 13.7 % (11.6-14.6)
[2021-10-27 12:20] VITALS: BP 176/100
[2021-10-27 16:00] VITALS: BP 150/79
[2021-10-27] MEDS: AMLODIPINE 5MG TABLET PO SCH (16:24)
[2021-10-27] MEDS: LISINOPRIL 20MG TABLET GT SCH (16:24)
[2021-10-27] MEDS: OLANZAPINE 10MG TABLET PO SCH (18:34)
[2021-10-27 20:00] VITALS: BP 154/88
[2021-10-28] VITALS: BP 128/68
[2021-10-28] MEDS: PANTOPRAZOLE SODIUM 40 MG/VIAL IV SCH ×2 (01:05→15:30)
[2021-10-28] MEDS: DEXT 5%/LACTATED RINGERS 1,000 ML IV SCH (02:54)
[2021-10-28 04:00] VITALS: BP 134/63
[2021-10-28 08:00] VITALS: BP 153/88
[2021-10-28] MEDS: OLANZAPINE 10MG TABLET PO SCH (09:49)
[2021-10-28] MEDS: LISINOPRIL 20MG TABLET GT SCH (09:49)
[2021-10-28] MEDS: AMLODIPINE 5MG TABLET PO SCH (09:49)
[2021-10-28 13:37] VITALS: BP 117/70
== END 2021-10-28 16:00 | DRG 394 ==
LOC: ER 18:28 → MICUSO 21:52 → 6WST 10-26 11:42
PROVIDERS: ADMIT Internal Medicine; ATTEND Internal Medicine
PROC: 0D20XUZ Change Feeding Device in Upper Intestinal Tract, External Approach (ICD-10-PCS; principal; 2021-10-27)
DX: K94.23 Gastrostomy malfunction (principal); G45.9 Transient cerebral ischemic attack, unspecified; D64.9 Anemia, unspecified; E11.9 Type 2 diabetes mellitus without complications; F03.90 Unspecified dementia, unspecified severity, without behavioral disturbance, psychotic disturbance, mood disturbance, and anxiety; I10 Essential (primary) hypertension; I48.91 Unspecified atrial fibrillation; R13.12 Dysphagia, oropharyngeal phase; Y83.3 Surgical operation with formation of external stoma as the cause of abnormal reaction of the patient, or of later complication, without mention of misadventure at the time of the procedure; K21.9 Gastro-esophageal reflux disease without esophagitis; I25.2 Old myocardial infarction; Z86.73 Personal history of transient ischemic attack (TIA), and cerebral infarction without residual deficits; Y92.89 Other specified places as the place of occurrence of the external cause
CPT/HCPCS: 36415; 74018; 80048; 80053; 82607; 82728; 82746; 83540; 83550; 85025; 85044; 93005; 99285; C9113; A4315